=== PATIENT | male | born 1975 | race Two or more races ===

== ENCOUNTER 2018-11-02 06:58 | Emergency (ER) | payer BC ==
[~2018-11-02] VITALS: Ht 182.9 cm; Wt 86.0 kg
[2018-11-02 08:55] LABS: BASOPHILS % 0.5 % (0.0-2.0); CHLORIDE 104 mEq/L (98-107); EOSINOPHILS % 1.3 % (0.0-5.0); HEMATOCRIT. 38.2 % (42.0-52.0); HEMOGLOBIN. 13.2 g/dL (14.0-18.0); LYMPHOCYTES % 8.9 % (20.0-50.0); MEAN CORPUSCULAR HEMOGLOBIN 36.1 pg (28.0-32.0); MEAN CORPUSCULAR VOLUME 104.6 fL (80.0-94.0); MEAN PLATELET VOLUME 7.2 fl (7.4-10.4); MONOCYTES % 5.9 % (2.0-8.0); NEUTROPHILS % 83.4 % (40.0-76.0); PLATELET 366 x1000/uL (130-400); RED BLOOD CELL COUNT 3.65 mill/uL (4.7-6.1)
[2018-11-02 08:59] LABS: ETHANOL BLOOD 126 mg/dL
[2018-11-02 09:25] VITALS: BP 125/87
[2018-11-02 09:25] LABS: CLARITY URINE CLEAR (CLEAR); COLOR URINE DARK YELLOW (YELLOW); KETONES URINE TRACE (NEGATIVE); LEUKOCYTE ESTERASE URINE NEGATIVE (NEGATIVE); NITRITE URINE NEGATIVE (NEGATIVE); OCCULT BLOOD URINE 2+ (NEGATIVE); PH URINE 5.5 (4.5-8.0); PROTEIN URINE 2+ (NEGATIVE); SPECIFIC GRAVITY URINE 1.019 (1.005-1.030)
[2018-11-02 09:50] LABS: *AMPHETAMINES SCREEN URINE PRESUMTIVE POSITIVE (NEGATIVE); *BARBITURATES SCREEN URINE NEGATIVE (NEGATIVE); *BENZODIAZEPINES SCREEN URINE NEGATIVE (NEGATIVE); *COCAINE SCREEN URINE NEGATIVE (NEGATIVE)
[2018-11-02 09:51] LABS: CANNABINOID URINE SCREEN PRESUMTIVE POSITIVE (NEGATIVE); METHADONE URINE SCREEN NEGATIVE (NEGATIVE); OPIATES URINE SCREEN NEGATIVE (NEGATIVE); PHENCYCLIDINE URINE SCREEN NEGATIVE (NEGATIVE)
[2018-11-02] MEDS ORDERED: LORAZEPAM 1MG TABLET PO ONE (10:45)
== END 2018-11-02 11:05 | disposition left against medical advice (07) ==
LOC: ER 06:58
DX: S22.42XA Multiple fractures of ribs, left side, initial encounter for closed fracture (principal); S22.31XA Fracture of one rib, right side, initial encounter for closed fracture; S30.811A Abrasion of abdominal wall, initial encounter; W13.2XXA Fall from, out of or through roof, initial encounter; Y93.89 Activity, other specified; F10.129 Alcohol abuse with intoxication, unspecified; Y90.6 Blood alcohol level of 120-199 mg/100 ml; F15.10 Other stimulant abuse, uncomplicated; F11.10 Opioid abuse, uncomplicated; E11.9 Type 2 diabetes mellitus without complications; F12.10 Cannabis abuse, uncomplicated; Y92.018 Other place in single-family (private) house as the place of occurrence of the external cause; I10 Essential (primary) hypertension
CPT/HCPCS: 36415; 71101; 74176; 80305; 80320; 82962; 99284; G0480

== ENCOUNTER 2019-04-28 19:38 | Emergency (ER) | payer BC ==
[~2019-04-28] VITALS: Ht 182.9 cm; Wt 93.0 kg
[2019-04-28] MEDS ORDERED: FOLIC ACID 1 MG, THIAMINE HCL 100 MG, MVI, ADULT NO.1 10 ML in DEXTROSE 5% WATER 1,000 ML IV ONE ×4 (21:15)
[2019-04-28] MEDS ORDERED: ONDANSETRON HCL 4MG/2ML INJ IV ONE (21:15)
[2019-04-28 21:33] LABS: EOSINOPHILS % 0.5 % (0.0-5.0); HEMATOCRIT. 48.6 % (42.0-52.0); HEMOGLOBIN. 16.9 g/dL (14.0-18.0); LYMPHOCYTES % 44.3 % (20.0-50.0); MEAN CORPUSCULAR HEMOGLOBIN 35.8 pg (28.0-32.0); MEAN PLATELET VOLUME 6.9 fl (7.4-10.4); MONOCYTES % 10.9 % (2.0-8.0); NEUTROPHILS % 43.3 % (40.0-76.0); PLATELET 332 x1000/uL (130-400); RED BLOOD CELL COUNT 4.72 mill/uL (4.7-6.1); RED CELL DISTRIBUTION WIDTH 13.6 % (11.6-14.6)
[2019-04-28 21:36] LABS: CHLORIDE 101 mEq/L (98-107)
[2019-04-28 22:09] LABS: ETHANOL BLOOD 390 mg/dL
[2019-04-28] MEDS ORDERED: LORAZEPAM 1MG TABLET PO ONE (22:30)
[2019-04-28 23:06] LABS: CLARITY URINE CLEAR (CLEAR); COLOR URINE YELLOW (YELLOW); KETONES URINE 1+ (NEGATIVE); LEUKOCYTE ESTERASE URINE NEGATIVE (NEGATIVE); NITRITE URINE NEGATIVE (NEGATIVE); OCCULT BLOOD URINE TRACE (NEGATIVE); PH URINE 5.5 (4.5-8.0); PROTEIN URINE 2+ (NEGATIVE); SPECIFIC GRAVITY URINE 1.013 (1.005-1.030); UROBILINOGEN URINE 0.2 E.U./dL (0.2-1.0)
[2019-04-28 23:17] LABS: *AMPHETAMINES SCREEN URINE NEGATIVE (NEGATIVE); *BARBITURATES SCREEN URINE NEGATIVE (NEGATIVE); *BENZODIAZEPINES SCREEN URINE NEGATIVE (NEGATIVE); *COCAINE SCREEN URINE NEGATIVE (NEGATIVE); METHADONE URINE SCREEN NEGATIVE (NEGATIVE)
[2019-04-28 23:18] LABS: CANNABINOID URINE SCREEN PRESUMTIVE POSITIVE (NEGATIVE); OPIATES URINE SCREEN NEGATIVE (NEGATIVE); PHENCYCLIDINE URINE SCREEN NEGATIVE (NEGATIVE)
[2019-04-29 04:44] VITALS: BP 127/72
== END 2019-04-29 06:45 | disposition home or self-care (01) ==
LOC: ER 19:38
DX: T51.0X1A Toxic effect of ethanol, accidental (unintentional), initial encounter (principal); F10.129 Alcohol abuse with intoxication, unspecified; G92 Toxic encephalopathy; Y90.8 Blood alcohol level of 240 mg/100 ml or more; Y92.89 Other specified places as the place of occurrence of the external cause; I10 Essential (primary) hypertension; E11.9 Type 2 diabetes mellitus without complications; F41.9 Anxiety disorder, unspecified
CPT/HCPCS: 36415; 70450; 80053; 80305; 80307; 80320; 80329; 81003; 85025; 93005; 96365; 96366; 96375; 99284; J2405; J3411; J3490; J7070; Z7610; G0480

== ENCOUNTER 2020-02-28 08:35 | Inpatient (IN) | payer BC ==
[~2020-02-28] VITALS: Ht 182.9 cm; Wt 90.7 kg
[2020-02-28] MEDS ORDERED: CLINDAMYCIN 600MG PREMIX 50 ML IV SCH (09:00)
[2020-02-28] MEDS ORDERED: CLINDAMYCIN 600 MG in DEXTROSE 5% WATER 50 ML IV ONE (09:00)
[2020-02-28 09:18] LABS: BASOPHILS % 0.3 % (0.0-2.0); HEMATOCRIT. 26.8 % (42.0-52.0); HEMOGLOBIN. 9.4 g/dL (14.0-18.0); LYMPHOCYTES % 18.3 % (20.0-50.0); MEAN CORPUSCULAR HEMOGLOBIN 36.9 pg (28.0-32.0); MEAN CORPUSCULAR VOLUME 105.4 fL (80.0-94.0); MEAN PLATELET VOLUME 7.1 fl (7.4-10.4); MONOCYTES % 9.2 % (2.0-8.0); NEUTROPHILS % 72.2 % (40.0-76.0); PLATELET 162 x1000/uL (130-400); RED BLOOD CELL COUNT 2.54 mill/uL (4.7-6.1); RED CELL DISTRIBUTION WIDTH 14.2 % (11.6-14.6)
[2020-02-28 09:25] LABS: CHLORIDE 99 mEq/L (98-107)
[2020-02-28 09:27] LABS: PROTHROMBIN TIME 10.1 sec (9.6-11.0)
[2020-02-28] MEDS ORDERED: LORAZEPAM 2MG/ML CPJ IV ONE (09:30)
[2020-02-28] MEDS ORDERED: CHLORDIAZEPOXIDE 25MG CAPSULE PO ONE (09:30)
[2020-02-28 09:44] LABS: ETHANOL BLOOD 470 mg/dL
[2020-02-28 11:08] LABS: CLARITY URINE CLEAR (CLEAR); COLOR URINE DARK YELLOW (YELLOW); KETONES URINE 3+ (NEGATIVE); LEUKOCYTE ESTERASE URINE TRACE (NEGATIVE); NITRITE URINE NEGATIVE (NEGATIVE); OCCULT BLOOD URINE 2+ (NEGATIVE); PROTEIN URINE 2+ (NEGATIVE); SPECIFIC GRAVITY URINE 1.023 (1.005-1.030)
[2020-02-28] MEDS ORDERED: MAGNESIUM/ALUMINUM HYDROXIDE/SIMETHICONE 30ML UDC PO PRN (14:15)
[2020-02-28] MEDS ORDERED: DEXT 5%/0.45% NACL KCL 10MEQ/L 1,000 ML IV SCH (15:00)
[2020-02-28] MEDS: PIPERACILLIN/TAZ 3.375G PREMIX 50 ML IV SCH ×2 (15:21→15:36)
[2020-02-28] MEDS: LORAZEPAM 2MG/ML CPJ IV PRN ×3 (15:28→23:45)
[2020-02-28] MEDS ORDERED: VANCOMYCIN 1 G PREMIX 200 ML IV SCH (16:00)
[2020-02-28 18:00] VITALS: BP 138/81
[2020-02-28 20:00] VITALS: BP 169/95
[2020-02-28 20:02] VITALS: BP 138/81
[2020-02-28] MEDS ORDERED: GABA-531 MT (20:34)
[2020-02-28] MEDS ORDERED: DILT30TA38 MT (20:35)
[2020-02-28] MEDS ORDERED: LORA2TAB95 MT (20:36)
[2020-02-28] MEDS ORDERED: CLON0.2T MT (20:38)
[2020-02-28] MEDS ORDERED: BUSP30TA2 MT (20:38)
[2020-02-28] MEDS ORDERED: TRAZ-251 MT (20:38)
[2020-02-28] MEDS: ONDANSETRON HCL 4MG/2ML INJ IV PRN (21:07)
[2020-02-28] MEDS: CLONIDINE 0.1MG TABLET PO PRN (21:07)
[2020-02-28] MEDS: DEXT 5%/0.45% NACL KCL 10MEQ/L 1,000 ML IV SCH (21:31)
[2020-02-28] MEDS: CHLORDIAZEPOXIDE 25MG CAPSULE PO SCH (21:31)
[2020-02-28] MEDS: PIPERACILLIN/TAZOBACTAM 3.375 G in DEXT 5% WATER 100 ML IV SCH (21:32)
[2020-02-29] VITALS: BP 155/84
[2020-02-29] MEDS: VANCOMYCIN 1 G PREMIX 200 ML IV SCH ×3 (02:24→21:34)
[2020-02-29] MEDS: ACETAMINOPHEN 325MG TABLET PO PRN ×3 (02:47→16:23)
[2020-02-29 04:00] VITALS: BP 132/77
[2020-02-29] MEDS: LORAZEPAM 2MG/ML CPJ IV PRN ×4 (04:43→21:41)
[2020-02-29] MEDS: CHLORDIAZEPOXIDE 25MG CAPSULE PO SCH ×3 (05:26→21:34)
[2020-02-29] MEDS: PIPERACILLIN/TAZOBACTAM 3.375 G in DEXT 5% WATER 100 ML IV SCH ×3 (05:26→21:35)
[2020-02-29] MEDS ORDERED: DILTIAZEM HCL 5MG/ML 5ML VIAL IV SCH (05:45)
[2020-02-29 06:45] LABS: BASOPHILS % 0.3 % (0.0-2.0); EOSINOPHILS % 0.1 % (0.0-5.0); HEMATOCRIT. 24.8 % (42.0-52.0); HEMOGLOBIN. 8.7 g/dL (14.0-18.0); LYMPHOCYTES % 19.8 % (20.0-50.0); MEAN CORPUSCULAR HEMOGLOBIN 36.7 pg (28.0-32.0); MEAN CORPUSCULAR VOLUME 105.1 fL (80.0-94.0); MEAN PLATELET VOLUME 7.6 fl (7.4-10.4); MONOCYTES % 6.4 % (2.0-8.0); NEUTROPHILS % 73.4 % (40.0-76.0); PLATELET 117 x1000/uL (130-400); RED BLOOD CELL COUNT 2.36 mill/uL (4.7-6.1)
[2020-02-29] MEDS: METOPROLOL TARTRATE 50MG TABLET PO SCH ×2 (07:40→21:34)
[2020-02-29 08:00] VITALS: BP 144/76
[2020-02-29] MEDS ORDERED: INFLUENZA VACCINE 05/PF 0.5 ML VIAL IM ONE (08:00)
[2020-02-29 08:09] LABS: CHLORIDE 92 mEq/L (98-107)
[2020-02-29] MEDS: FOLIC ACID 1MG TABLET PO SCH (08:53)
[2020-02-29] MEDS: THIAMINE HCL 100MG TABLET PO SCH (08:53)
[2020-02-29] MEDS: MULTIVITAMINS,THER W-MINERALS TABLET PO SCH (08:54)
[2020-02-29] MEDS ORDERED: AMLODIPINE 10MG TABLET PO SCH (09:00)
[2020-02-29] MEDS: DEXT 5%/0.45% NACL KCL 10MEQ/L 1,000 ML IV SCH ×2 (09:52→23:40)
[2020-02-29] MEDS ORDERED: POTASSIUM CHLORIDE INJ 40 MEQ in DEXT 5% WATER 250 ML IV SCH (11:00)
[2020-02-29 12:00] VITALS: BP 129/85
[2020-02-29 12:32] LABS: T4 FREE 0.73 ng/dL (0.76-1.46)
[2020-02-29 16:00] VITALS: BP 157/95
[2020-02-29 16:07] LABS: CREATINE KINASE MB FRACTION 3.7 ng/mL (0.5-3.6)
[2020-02-29 20:00] VITALS: BP 144/92
[2020-02-29 23:51] LABS: CREATINE KINASE MB FRACTION 2.4 ng/mL (0.5-3.6)
[2020-03-01] VITALS: BP 139/95
[2020-03-01 00:01] LABS: CREATINE KINASE 1457 IU/L (39-308)
[2020-03-01] MEDS: VANCOMYCIN 1 G PREMIX 200 ML IV SCH ×3 (03:15→20:11)
[2020-03-01] MEDS: LORAZEPAM 2MG/ML CPJ IV PRN ×4 (03:35→20:12)
[2020-03-01] MEDS: ACETAMINOPHEN 325MG TABLET PO PRN ×4 (03:35→21:25)
[2020-03-01 04:00] VITALS: BP 142/69
[2020-03-01] MEDS: PIPERACILLIN/TAZOBACTAM 3.375 G in DEXT 5% WATER 100 ML IV SCH ×3 (05:07→20:11)
[2020-03-01] MEDS: CHLORDIAZEPOXIDE 25MG CAPSULE PO SCH ×3 (05:07→20:11)
[2020-03-01 05:31] LABS: CHLORIDE 93 mEq/L (98-107)
[2020-03-01 05:45] LABS: CREATINE KINASE MB FRACTION 1.7 ng/mL (0.5-3.6)
[2020-03-01 05:53] LABS: CREATINE KINASE 1145 IU/L (39-308)
[2020-03-01 08:00] VITALS: BP 152/98
[2020-03-01] MEDS: SILVER SULFADIAZINE 1% CREAM 50GM TOP SCH (08:30)
[2020-03-01] MEDS: THIAMINE HCL 100MG TABLET PO SCH (08:30)
[2020-03-01] MEDS: MULTIVITAMINS,THER W-MINERALS TABLET PO SCH (08:30)
[2020-03-01] MEDS: FOLIC ACID 1MG TABLET PO SCH (08:30)
[2020-03-01] MEDS: METOPROLOL TARTRATE 50MG TABLET PO SCH ×2 (08:31→20:12)
[2020-03-01] MEDS ORDERED: ALBUTEROL (0.083%) 2.5MG/3ML NEB INH PRN (10:45)
[2020-03-01] MEDS ORDERED: POTASSIUM CHLORIDE 20MEQ TABLET SR PO NR (10:45)
[2020-03-01 11:22] VITALS: BP 127/82
[2020-03-01] MEDS: DEXT 5%/0.45% NACL KCL 10MEQ/L 1,000 ML IV SCH (11:54)
[2020-03-01 15:30] VITALS: BP 131/85
[2020-03-01 20:00] VITALS: BP 142/92
[2020-03-02] VITALS: BP 148/93
[2020-03-02] MEDS: DEXT 5%/0.45% NACL KCL 10MEQ/L 1,000 ML IV SCH ×2 (00:05→18:25)
[2020-03-02] MEDS: LORAZEPAM 2MG/ML CPJ IV PRN ×6 (00:12→22:39)
[2020-03-02] MEDS: VANCOMYCIN 1 G PREMIX 200 ML IV SCH ×3 (03:00→19:27)
[2020-03-02 04:00] VITALS: BP 143/90
[2020-03-02] MEDS: ACETAMINOPHEN 325MG TABLET PO PRN ×3 (04:14→18:24)
[2020-03-02] MEDS: PIPERACILLIN/TAZOBACTAM 3.375 G in DEXT 5% WATER 100 ML IV SCH ×3 (05:13→21:38)
[2020-03-02] MEDS: CHLORDIAZEPOXIDE 25MG CAPSULE PO SCH ×3 (05:13→21:38)
[2020-03-02 06:37] LABS: BASOPHILS % 0.7 % (0.0-2.0); EOSINOPHILS % 0.8 % (0.0-5.0); HEMATOCRIT. 26.1 % (42.0-52.0); HEMOGLOBIN. 9.2 g/dL (14.0-18.0); LYMPHOCYTES % 26.4 % (20.0-50.0); MEAN CORPUSCULAR HEMOGLOBIN 36.9 pg (28.0-32.0); MEAN PLATELET VOLUME 8.4 fl (7.4-10.4); MONOCYTES % 7.5 % (2.0-8.0); NEUTROPHILS % 64.6 % (40.0-76.0); PLATELET 135 x1000/uL (130-400); RED BLOOD CELL COUNT 2.48 mill/uL (4.7-6.1); RED CELL DISTRIBUTION WIDTH 14.3 % (11.6-14.6)
[2020-03-02 06:46] LABS: CHLORIDE 97 mEq/L (98-107)
[2020-03-02 06:59] LABS: CREATINE KINASE 526 IU/L (39-308)
[2020-03-02 07:01] LABS: VANCOMYCIN TROUGH 34.8 ug/mL (5.0-10.0)
[2020-03-02] MEDS ORDERED: POTASSIUM CHLORIDE 20MEQ TABLET SR PO NR (07:45)
[2020-03-02 08:00] VITALS: BP 166/86
[2020-03-02] MEDS: MULTIVITAMINS,THER W-MINERALS TABLET PO SCH (08:21)
[2020-03-02] MEDS: METOPROLOL TARTRATE 100MG TABLET PO SCH ×2 (08:22→20:31)
[2020-03-02] MEDS: FOLIC ACID 1MG TABLET PO SCH (08:22)
[2020-03-02] MEDS: THIAMINE HCL 100MG TABLET PO SCH (08:22)
[2020-03-02] MEDS: SILVER SULFADIAZINE 1% CREAM 50GM TOP SCH (08:22)
[2020-03-02 12:00] VITALS: BP 150/72
[2020-03-02 16:00] VITALS: BP 144/93
[2020-03-02 20:00] VITALS: BP 136/70
[2020-03-03] VITALS: BP 132/80
[2020-03-03] MEDS: ACETAMINOPHEN 325MG TABLET PO PRN ×4 (00:56→19:48)
[2020-03-03] MEDS: LORAZEPAM 2MG/ML CPJ IV PRN ×5 (02:24→19:48)
[2020-03-03] MEDS: VANCOMYCIN 1 G PREMIX 200 ML IV SCH ×4 (03:32→19:48)
[2020-03-03 04:00] VITALS: BP 148/77
[2020-03-03] MEDS: CHLORDIAZEPOXIDE 25MG CAPSULE PO SCH ×3 (05:36→21:38)
[2020-03-03] MEDS: PIPERACILLIN/TAZOBACTAM 3.375 G in DEXT 5% WATER 100 ML IV SCH ×4 (05:45→21:38)
[2020-03-03 06:46] LABS: BASOPHILS % 0.9 % (0.0-2.0); EOSINOPHILS % 0.9 % (0.0-5.0); HEMATOCRIT. 31.7 % (42.0-52.0); LYMPHOCYTES % 31.3 % (20.0-50.0); MEAN CORPUSCULAR HEMOGLOBIN 36.2 pg (28.0-32.0); MEAN CORPUSCULAR VOLUME 106.9 fL (80.0-94.0); MEAN PLATELET VOLUME 8.2 fl (7.4-10.4); MONOCYTES % 8.8 % (2.0-8.0); NEUTROPHILS % 58.1 % (40.0-76.0); PLATELET 188 x1000/uL (130-400); RED BLOOD CELL COUNT 2.96 mill/uL (4.7-6.1); RED CELL DISTRIBUTION WIDTH 14.4 % (11.6-14.6)
[2020-03-03 06:53] LABS: CHLORIDE 101 mEq/L (98-107)
[2020-03-03 07:00] LABS: HEMOGLOBIN. 10.7 g/dL (14.0-18.0)
[2020-03-03 08:00] VITALS: BP 167/96
[2020-03-03] MEDS: FOLIC ACID 1MG TABLET PO SCH (08:56)
[2020-03-03] MEDS: MULTIVITAMINS,THER W-MINERALS TABLET PO SCH (08:56)
[2020-03-03] MEDS: METOPROLOL TARTRATE 100MG TABLET PO SCH ×2 (08:57→20:20)
[2020-03-03] MEDS: SILVER SULFADIAZINE 1% CREAM 50GM TOP SCH (08:58)
[2020-03-03] MEDS: THIAMINE HCL 100MG TABLET PO SCH (09:24)
[2020-03-03 11:57] VITALS: BP 166/61
[2020-03-03 16:00] VITALS: BP 145/77
[2020-03-03 20:00] VITALS: BP 162/78
[2020-03-04] VITALS: BP 154/78
[2020-03-04] MEDS: VANCOMYCIN 1 G PREMIX 200 ML IV SCH (03:43)
[2020-03-04 04:00] VITALS: BP 156/87
[2020-03-04] MEDS: ACETAMINOPHEN 325MG TABLET PO PRN ×2 (05:12→18:52)
[2020-03-04] MEDS: PIPERACILLIN/TAZOBACTAM 3.375 G in DEXT 5% WATER 100 ML IV SCH (05:12)
[2020-03-04] MEDS: LORAZEPAM 2MG/ML CPJ IV PRN ×3 (05:12→18:52)
[2020-03-04] MEDS: CHLORDIAZEPOXIDE 25MG CAPSULE PO SCH ×3 (05:31→21:15)
[2020-03-04 08:00] VITALS: BP 200/133
[2020-03-04] MEDS: MULTIVITAMINS,THER W-MINERALS TABLET PO SCH (08:42)
[2020-03-04] MEDS: THIAMINE HCL 100MG TABLET PO SCH (08:42)
[2020-03-04] MEDS: METOPROLOL TARTRATE 100MG TABLET PO SCH ×2 (08:42→21:15)
[2020-03-04] MEDS: FOLIC ACID 1MG TABLET PO SCH (08:42)
[2020-03-04] MEDS: DEXT 5%/0.45% NACL KCL 10MEQ/L 1,000 ML IV SCH (08:42)
[2020-03-04] MEDS: SILVER SULFADIAZINE 1% CREAM 50GM TOP SCH (08:43)
[2020-03-04] MEDS: CLONIDINE 0.1MG TABLET PO PRN ×2 (09:42→17:15)
[2020-03-04] MEDS: TRAMADOL 50MG TABLET PO PRN ×2 (09:48→17:15)
[2020-03-04 12:00] VITALS: BP 165/80
[2020-03-04] MEDS: CEPHALEXIN 250MG CAPSULE PO SCH ×2 (12:41→17:29)
[2020-03-04] MEDS ORDERED: LORAZEPAM 2MG/ML CPJ IV PRN (14:45)
[2020-03-04 16:00] VITALS: BP 186/115
[2020-03-04] MEDS: ONDANSETRON HCL 4MG/2ML INJ IV PRN (17:15)
[2020-03-04 20:00] VITALS: BP 161/80
[2020-03-05] VITALS: BP 141/62
[2020-03-05] MEDS: CEPHALEXIN 250MG CAPSULE PO SCH ×2 (00:14→05:53)
[2020-03-05] MEDS: LORAZEPAM 2MG/ML CPJ IV PRN ×2 (00:15→08:32)
[2020-03-05 04:00] VITALS: BP 153/74
[2020-03-05] MEDS: TRAMADOL 50MG TABLET PO PRN (05:56)
[2020-03-05 08:00] VITALS: BP 175/56
[2020-03-05] MEDS: MULTIVITAMINS,THER W-MINERALS TABLET PO SCH (08:32)
[2020-03-05] MEDS: FOLIC ACID 1MG TABLET PO SCH (08:32)
[2020-03-05] MEDS: THIAMINE HCL 100MG TABLET PO SCH (08:32)
[2020-03-05] MEDS: METOPROLOL TARTRATE 100MG TABLET PO SCH (08:32)
== END 2020-03-05 12:22 | disposition home health service (06) | DRG 908 ==
LOC: ER 08:44 → 8WST 13:32 → ENRESERV 15:37 → 8WST 03-02 13:33
PROVIDERS: ADMIT Hospitalist; ATTEND Hospitalist
PROC: 0KB90ZZ Excision of Right Lower Arm and Wrist Muscle, Open Approach (ICD-10-PCS; principal; 2020-03-03)
DX: T81.30XA Disruption of wound, unspecified, initial encounter (principal); L03.113 Cellulitis of right upper limb; D64.9 Anemia, unspecified; E11.9 Type 2 diabetes mellitus without complications; E78.5 Hyperlipidemia, unspecified; I10 Essential (primary) hypertension; I48.91 Unspecified atrial fibrillation; Y90.9 Presence of alcohol in blood, level not specified; R74.01 Elevation of levels of liver transaminase levels; S51.811A Laceration without foreign body of right forearm, initial encounter; F41.9 Anxiety disorder, unspecified; F10.129 Alcohol abuse with intoxication, unspecified; W18.39XA Other fall on same level, initial encounter; Y93.89 Activity, other specified; Y92.89 Other specified places as the place of occurrence of the external cause; Y99.8 Other external cause status
CPT/HCPCS: 36415; 71045; 73030; 80048; 80053; 80061; 80202; 80320; 81003; 82550; 82553; 83036; 83735; 83880; 84439; 84443; 84484; 85025; 85379; 90686; 93005; 93306; 93970; 99285; C1893; J2060; J2405; J2543; J3370; J3480; J3490; J7040; J7060; G0480

== ENCOUNTER 2020-04-14 20:59 | Emergency (ER) | payer BC ==
[~2020-04-14] VITALS: Ht 182.9 cm; Wt 90.9 kg
[~2020-04-14 20:59] MED LIST: BUSP30TA2 MT; CLON0.2T MT; DILT30TA38 MT; GABA-531 MT; LORA2TAB95 MT; TRAZ-251 MT
[2020-04-14] MEDS ORDERED: LORAZEPAM 2MG/ML CPJ IV ONE (23:30)
[2020-04-14] MEDS ORDERED: SODIUM CHLORIDE 0.9% 1,000 ML IV ONE (23:30)
[2020-04-15 00:30] LABS: BASOPHILS % 1.3 % (0.0-2.0); EOSINOPHILS % 0.8 % (0.0-5.0); HEMATOCRIT. 40.3 % (42.0-52.0); HEMOGLOBIN. 13.4 g/dL (14.0-18.0); LYMPHOCYTES % 38.9 % (20.0-50.0); MEAN CORPUSCULAR HEMOGLOBIN 34.2 pg (28.0-32.0); MEAN CORPUSCULAR VOLUME 102.7 fL (80.0-94.0); MEAN PLATELET VOLUME 7.1 fl (7.4-10.4); MONOCYTES % 7.9 % (2.0-8.0); NEUTROPHILS % 51.1 % (40.0-76.0); PLATELET 303 x1000/uL (130-400); RED BLOOD CELL COUNT 3.92 mill/uL (4.7-6.1); RED CELL DISTRIBUTION WIDTH 14.5 % (11.6-14.6)
[2020-04-15 00:38] LABS: CHLORIDE 106 mEq/L (98-107)
[2020-04-15 01:03] LABS: ETHANOL BLOOD 355 mg/dL
[2020-04-15 01:32] LABS: *AMPHETAMINES SCREEN URINE NEGATIVE (NEGATIVE); *BARBITURATES SCREEN URINE NEGATIVE (NEGATIVE); *BENZODIAZEPINES SCREEN URINE PRESUMTIVE POSITIVE (NEGATIVE); *COCAINE SCREEN URINE NEGATIVE (NEGATIVE); METHADONE URINE SCREEN NEGATIVE (NEGATIVE); OPIATES URINE SCREEN NEGATIVE (NEGATIVE)
[2020-04-15 01:33] LABS: CANNABINOID URINE SCREEN PRESUMTIVE POSITIVE (NEGATIVE); PHENCYCLIDINE URINE SCREEN NEGATIVE (NEGATIVE)
[2020-04-15 02:30] VITALS: BP 127/76
== END 2020-04-15 02:48 | disposition home or self-care (01) ==
LOC: ER 20:59
DX: M25.512 Pain in left shoulder (principal); F10.129 Alcohol abuse with intoxication, unspecified; Y90.8 Blood alcohol level of 240 mg/100 ml or more; I11.9 Hypertensive heart disease without heart failure; Z98.890 Other specified postprocedural states
CPT/HCPCS: 36415; 71045; 80053; 80305; 80320; 85025; 93005; 96361; 96374; 99285; J2060; J7030; G0480

== ENCOUNTER 2021-02-15 12:39 | Inpatient (IN) | payer BC ==
[~2021-02-15] VITALS: Ht 182.9 cm; Wt 84.9 kg
[~2021-02-15 12:39] MED LIST changes: -GABA-531 MT; +GABA-532 MT
[2021-02-15] MEDS ORDERED: CHLORDIAZEPOXIDE 25MG CAPSULE PO ONE (13:45)
[2021-02-15] MEDS ORDERED: SODIUM CHLORIDE 0.9% 1,000 ML IV ONE (13:45)
[2021-02-15] MEDS ORDERED: LORAZEPAM 2MG/ML CPJ IV ONE (16:30)
[2021-02-15] MEDS ORDERED: DEXAMETHASONE 10 MG/ML VIAL IV ONE (16:30)
[2021-02-15] MEDS ORDERED: ALBUTEROL (0.083%) 2.5MG/3ML NEB HHN SCH (16:30)
[2021-02-15 16:34] LABS: BASOPHILS % 0.4 % (0.0-2.0); HEMOGLOBIN. 13.8 g/dL (14.0-18.0); MEAN CORPUSCULAR HEMOGLOBIN 31.6 pg (28.0-32.0); MEAN CORPUSCULAR VOLUME 93.4 fL (80.0-94.0); MEAN PLATELET VOLUME 7.3 fl (7.4-10.4); MONOCYTES % 5.2 % (2.0-8.0); NEUTROPHILS % 47.4 % (40.0-76.0); PLATELET 263 x1000/uL (130-400); RED BLOOD CELL COUNT 4.39 mill/uL (4.7-6.1); RED CELL DISTRIBUTION WIDTH 14.8 % (11.6-14.6)
[2021-02-15 16:38] LABS: CHLORIDE 93 mEq/L (98-107)
[2021-02-15] MEDS ORDERED: NITROGLYCERIN 0.4MG TABLET SL SL PRN (18:30)
[2021-02-15] MEDS: ENOXAPARIN 40MG/0.4ML SYR SUBCUT SCH (18:30)
[2021-02-15] MEDS ORDERED: MAGNESIUM/ALUMINUM HYDROXIDE/SIMETHICONE 30ML UDC PO PRN (18:30)
[2021-02-15] MEDS ORDERED: ONDANSETRON HCL 4MG/2ML INJ IV PRN (18:30)
[2021-02-15] MEDS ORDERED: ACETAMINOPHEN 325MG TABLET PO PRN ×2 (18:30)
[2021-02-15] MEDS ORDERED: IPRATROPIUM/ALBUTEROL 0.5-3(2.5)MG/3ML NEB NEB PRN (18:30)
[2021-02-15] MEDS ORDERED: GUAIFENESIN 200MG/10ML SUGAR FREE UDC PO PRN (18:30)
[2021-02-15] MEDS ORDERED: DOCUSATE SODIUM 100MG CAPSULE PO PRN (18:30)
[2021-02-15] MEDS ORDERED: CLONIDINE 0.1MG TABLET PO PRN (18:30)
[2021-02-15 18:58] LABS: TOTAL IRON BINDING CAPACITY 454 ug/dL (250-450)
[2021-02-15] MEDS ORDERED: MVI, ADULT NO.1 10 ML, FOLIC ACID 1 MG, THIAMINE HCL 100 MG in SODIUM CHLORIDE 0.9% 1,0... IV SCH (19:00)
[2021-02-15 19:09] LABS: ETHANOL BLOOD 371 mg/dL
[2021-02-15 19:27] LABS: VITAMIN B12 SERUM 595 pg/mL (211-911)
[2021-02-15 19:46] LABS: FOLIC ACID (FOLATE) SERUM > 20.00 ng/mL (>5.38)
[2021-02-15] MEDS ORDERED: ZOLPIDEM TARTRATE 5MG TABLET PO PRN (20:30)
[2021-02-15] MEDS: FAMOTIDINE 20MG TABLET PO SCH (21:43)
[2021-02-15] MEDS: CHLORDIAZEPOXIDE 25MG CAPSULE PO SCH (21:43)
[2021-02-16 01:18] LABS: CREATINE KINASE MB FRACTION 5.9 ng/mL (0.5-3.6)
[2021-02-16] MEDS: LORAZEPAM 2MG/ML CPJ IV PRN ×4 (02:31→22:45)
[2021-02-16] MEDS: DILTIAZEM HCL 60MG TABLET PO SCH ×4 (02:43→18:41)
[2021-02-16 05:40] LABS: BASOPHILS % 0.3 % (0.0-2.0); HEMATOCRIT. 37.4 % (42.0-52.0); HEMOGLOBIN. 12.4 g/dL (14.0-18.0); LYMPHOCYTES % 31.2 % (20.0-50.0); MEAN CORPUSCULAR HEMOGLOBIN 31.3 pg (28.0-32.0); MEAN CORPUSCULAR VOLUME 94.3 fL (80.0-94.0); MEAN PLATELET VOLUME 7.3 fl (7.4-10.4); MONOCYTES % 3.9 % (2.0-8.0); NEUTROPHILS % 64.6 % (40.0-76.0); PLATELET 178 x1000/uL (130-400); RED BLOOD CELL COUNT 3.97 mill/uL (4.7-6.1); RED CELL DISTRIBUTION WIDTH 14.9 % (11.6-14.6)
[2021-02-16 05:41] LABS: CHLORIDE 96 mEq/L (98-107)
[2021-02-16 05:46] LABS: PHOSPHORUS 2.8 mg/dL (2.5-4.9)
[2021-02-16 05:50] LABS: CREATINE KINASE 380 IU/L (39-308)
[2021-02-16 05:53] LABS: CREATINE KINASE MB FRACTION 5.2 ng/mL (0.5-3.6)
[2021-02-16] MEDS: CHLORDIAZEPOXIDE 25MG CAPSULE PO SCH ×3 (09:54→20:01)
[2021-02-16] MEDS: FAMOTIDINE 20MG TABLET PO SCH ×2 (09:54→20:01)
[2021-02-16 10:35] VITALS: BP 165/94
[2021-02-16] MEDS ORDERED: GABA-290 MT (11:31)
[2021-02-16] MEDS ORDERED: TRAZ150T78 PO (11:32)
[2021-02-16] MEDS ORDERED: MIRT-118 PO (11:35)
[2021-02-16] MEDS ORDERED: BUSP30TA2 PO (11:35)
[2021-02-16] MEDS ORDERED: CLON-457 PO (11:35)
[2021-02-16] MEDS ORDERED: GABA-290 PO (11:35)
[2021-02-16 12:00] VITALS: BP_SYST 140; BP_SYST 168; BP_DIAS 100; BP_DIAS 90
[2021-02-16 16:00] VITALS: BP 140/100
[2021-02-16] MEDS: ENOXAPARIN 40MG/0.4ML SYR SUBCUT SCH (18:41)
[2021-02-16 20:00] VITALS: BP 147/91
[2021-02-16 21:47] LABS: CANNABINOID URINE SCREEN PRESUMTIVE POSITIVE (NEGATIVE); METHADONE URINE SCREEN NEGATIVE (NEGATIVE); OPIATES URINE SCREEN NEGATIVE (NEGATIVE); PHENCYCLIDINE URINE SCREEN NEGATIVE (NEGATIVE)
[2021-02-16 21:48] LABS: *AMPHETAMINES SCREEN URINE NEGATIVE (NEGATIVE); *BARBITURATES SCREEN URINE NEGATIVE (NEGATIVE); *BENZODIAZEPINES SCREEN URINE PRESUMTIVE POSITIVE (NEGATIVE); *COCAINE SCREEN URINE NEGATIVE (NEGATIVE)
[2021-02-17] VITALS: BP 134/78
[2021-02-17] MEDS: DILTIAZEM HCL 60MG TABLET PO SCH ×3 (00:59→11:55)
[2021-02-17 04:00] VITALS: BP 170/91
[2021-02-17] MEDS: CHLORDIAZEPOXIDE 25MG CAPSULE PO SCH ×2 (05:42→14:19)
[2021-02-17 08:00] VITALS: BP 151/89
[2021-02-17] MEDS: FAMOTIDINE 20MG TABLET PO SCH (08:50)
[2021-02-17] MEDS: LORAZEPAM 2MG/ML CPJ IV PRN (11:56)
[2021-02-17 12:00] VITALS: BP 152/99
[2021-02-17 16:00] VITALS: BP 148/76
== END 2021-02-17 16:30 | disposition left against medical advice (07) | DRG 178 ==
LOC: ER 12:39 → EDBEDREQ 19:31 → ENRESERV 21:48 → CANRESERV 21:48 → MICUSO 02-16 00:46 → 7WST 02-16 07:15 → 7EST 02-16 20:50
PROVIDERS: ADMIT Internal Medicine; ATTEND Internal Medicine
DX: U07.1 COVID-19 (principal); F10.139 Alcohol abuse with withdrawal, unspecified; Y90.9 Presence of alcohol in blood, level not specified; I10 Essential (primary) hypertension; J45.909 Unspecified asthma, uncomplicated; R56.9 Unspecified convulsions; F41.1 Generalized anxiety disorder; D63.8 Anemia in other chronic diseases classified elsewhere; Z79.899 Other long term (current) drug therapy; Z87.891 Personal history of nicotine dependence
CPT/HCPCS: 36415; 71045; 80053; 80305; 80320; 82550; 82553; 82607; 82746; 83540; 83550; 83735; 83880; 84100; 84484; 85025; 87426; 93005; 93306; 93970; 94640; 99285; J1100; J1650; J2060; J3411; J3490; J7030; U0003; U0005; G0480

== ENCOUNTER 2021-12-04 05:43 | Emergency (ER) | payer BC ==
[~2021-12-04] VITALS: Ht 177.8 cm; Wt 79.0 kg
[~2021-12-04 05:43] MED LIST changes: +BUSP30TA2 PO; +CLON-457 PO; +GABA-290 MT; +GABA-290 PO; +MIRT-118 PO; +TRAZ150T78 PO
[2021-12-04 06:43] LABS: BASOPHILS % 1.3 % (0.0-2.0); EOSINOPHILS % 1.9 % (0.0-5.0); HEMATOCRIT. 35.8 % (42.0-52.0); HEMOGLOBIN. 12.2 g/dL (14.0-18.0); LYMPHOCYTES % 25.3 % (20.0-50.0); MEAN CORPUSCULAR HEMOGLOBIN 33.3 pg (28.0-32.0); MEAN CORPUSCULAR VOLUME 97.3 fL (80.0-94.0); MEAN PLATELET VOLUME 6.9 fl (7.4-10.4); MONOCYTES % 11.6 % (2.0-8.0); NEUTROPHILS % 59.9 % (40.0-76.0); PLATELET 311 x1000/uL (130-400); RED BLOOD CELL COUNT 3.67 mill/uL (4.7-6.1)
[2021-12-04 06:53] LABS: CHLORIDE 99 mEq/L (98-107)
[2021-12-04 07:00] LABS: ETHANOL BLOOD 225 mg/dL
[2021-12-04 08:00] VITALS: BP 126/87
[2021-12-04] MEDS ORDERED: CHLORDIAZEPOXIDE 25MG CAPSULE PO ONE (08:15)
== END 2021-12-04 08:55 | disposition home or self-care (01) ==
LOC: ER 05:43
DX: G40.909 Epilepsy, unspecified, not intractable, without status epilepticus (principal); F10.129 Alcohol abuse with intoxication, unspecified; F11.20 Opioid dependence, uncomplicated; I10 Essential (primary) hypertension; J45.909 Unspecified asthma, uncomplicated; Z79.899 Other long term (current) drug therapy; Y90.7 Blood alcohol level of 200-239 mg/100 ml
CPT/HCPCS: 36415; 80053; 80307; 80320; 80329; 85025; 99283; G0480

== ENCOUNTER 2022-02-04 10:27 | Emergency (ER) | payer BC ==
[~2022-02-04] VITALS: Ht 180.3 cm; Wt 91.0 kg
[2022-02-04 11:54] LABS: BASOPHILS % 0.8 % (0.0-2.0); EOSINOPHILS % 0.4 % (0.0-5.0); HEMATOCRIT. 42.5 % (42.0-52.0); HEMOGLOBIN. 14.5 g/dL (14.0-18.0); LYMPHOCYTES % 37.4 % (20.0-50.0); MEAN CORPUSCULAR HEMOGLOBIN 33.3 pg (28.0-32.0); MEAN CORPUSCULAR VOLUME 97.2 fL (80.0-94.0); MEAN PLATELET VOLUME 7.6 fl (7.4-10.4); MONOCYTES % 7.9 % (2.0-8.0); NEUTROPHILS % 53.5 % (40.0-76.0); PLATELET 211 x1000/uL (130-400); RED BLOOD CELL COUNT 4.37 mill/uL (4.7-6.1); RED CELL DISTRIBUTION WIDTH 15.3 % (11.6-14.6)
[2022-02-04 12:02] LABS: CHLORIDE 96 mEq/L (98-107)
[2022-02-04 12:22] LABS: ETHANOL BLOOD 503 mg/dL
[2022-02-04] MEDS ORDERED: POTASSIUM CHLORIDE 20MEQ TABLET SR PO ONE (13:45)
[2022-02-04] MEDS ORDERED: CHLORDIAZEPOXIDE 25MG CAPSULE PO ONE (13:45)
[2022-02-04 15:29] VITALS: BP 136/99
== END 2022-02-04 15:31 | disposition home or self-care (01) ==
LOC: ER 10:27
DX: F10.229 Alcohol dependence with intoxication, unspecified (principal); Y90.8 Blood alcohol level of 240 mg/100 ml or more; F15.10 Other stimulant abuse, uncomplicated
CPT/HCPCS: 36415; 80053; 80307; 80320; 80329; 85025; 99285; G0480